=== PATIENT | male | born 2005 ===

== ENCOUNTER 2024-10-03 04:39 | Emergency (ER) | payer SELFPAY ==
[~2024-10-03] VITALS: Ht 172.7 cm; Wt 75.0 kg
[2024-10-03 04:44] VITALS: BP 122/64; PULSE 79; RESP 16; TEMP 98.6; O2SAT 100
== END 2024-10-03 05:09 ==
LOC: EMS 04:42
DX: S20.219A Contusion of unspecified front wall of thorax, initial encounter (principal); Z02.89 Encounter for other administrative examinations; R51.9 Headache, unspecified; X58.XXXA Exposure to other specified factors, initial encounter; Y93.89 Activity, other specified; Y92.89 Other specified places as the place of occurrence of the external cause; Y99.8 Other external cause status
CPT/HCPCS: 99283; Z7502